=== PATIENT | female | born 1970 | race Caucasian/White ===

== ENCOUNTER 2024-08-05 10:02 | Emergency (ER) | payer MEDICARE ==
[~2024-08-05] VITALS: Ht 172.7 cm; Wt 62.0 kg
[2024-08-05] VITALS (30 sets, daily range): BP systolic 111–143; BP diastolic 69–86
[2024-08-05] MEDS ORDERED: ATORVASTATIN CA40 MG PO (10:18)
[2024-08-05] MEDS ORDERED: CYMBALTA60 MG PO (10:19)
[2024-08-05] MEDS ORDERED: INVEGA6 MG PO (10:19)
[2024-08-05] MEDS ORDERED: ATIVAN1 MG PO (10:20)
[2024-08-05] MEDS ORDERED: MS CONTIN30 MG PO (10:20)
[2024-08-05] MEDS ORDERED: KEPPRA500 M2 PO (10:20)
[2024-08-05] MEDS ORDERED: HYDROCO/APAP1 T10 PO (10:21)
[2024-08-05] MEDS ORDERED: MORPHINE SULFATE 4 MG/ML VIAL IV STA (10:31)
[2024-08-05] MEDS ORDERED: SODIUM CHLORIDE 0.9% 1,000 ML IV STA (10:31)
[2024-08-05] MEDS ORDERED: ONDANSETRON HCl 4 MG/2 ML SDV IV STA (10:31)
[2024-08-05] MEDS ORDERED: PIPERACILLIN Sodium-Tazobactam 3.375 GM in SODIUM CHLORIDE 0.9% 100 ML IV ONE (10:35)
[2024-08-05] MEDS ORDERED: LACTATED RINGER'S 1,000 ML IV ONE (10:35)
[2024-08-05 11:17] LABS: BASO% 0.3 % (0-3); HEMATOCRIT 37.8 % (37.0-47.0); HEMOGLOBIN 12.1 g/dl (12.0-16.0); IMMATURE GRANULOCYTES 0.2 % (0.0-5.0); LYMPH% 5.3 % (15-41); MEAN CELL VOLUME 91.1 fL CALC (80.0-100.0); MEAN CORPUSCULAR HGB 29.2 pG CALC (26.0-32.0); MONO% 6.4 % (2-13); NEUT# 11.74 thou/uL (2.00-7.15); NEUT% 87.8 % (42-76); RED BLOOD COUNT 4.15 mill/uL (4.20-5.60); RED CELL DISTRI WIDTH 14.5 % (11.5-15.5)
[2024-08-05 11:27] LABS: ALBUMIN 5.2 g/dL (3.2-5.0); ALKALINE PHOSPHATASE 93 u/l (38-126); ANION GAP 31 (6-22 (CALC)); BILIRUBIN, TOTAL 0.8 mg/dL (0.02-1.3); BUN 22 mg/dL (7-17); BUN/CREATININE RATIO 27 (12-20 (CALC)); CARBON DIOXIDE 13 mmol/l (22-30); CHLORIDE 103 mmol/l (95-108); CREATININE 0.8 mg/dL (0.5-1.0); ESTIMATED GFR 88 ML/MIN (>=90 (CALC)); LIPASE 58 u/l (23-300); POTASSIUM 3.9 mmol/l (3.5-5.1); SGOT/AST 32 u/l (14-36); SODIUM 142 mmol/l (137-146); TOTAL PROTEIN 8.2 g/dL (6.3-8.2)
[2024-08-05 12:04] LABS: URINE BILIRUBIN - DIPSTICK Negative (NEGATIVE); URINE BLOOD DIPSTICK Moderate (NEGATIVE); URINE GLUCOSE - DIPSTICK Negative (NEGATIVE); URINE KETONE >=160 mg/dL (NEGATIVE); URINE LEUK ESTERASE Trace (NEGATIVE); URINE NITRITE - DIPSTICK Negative (Negative); URINE PROTEIN - DIPSTICK 30 mg/dL (NEG-TRACE); URINE SPECIFIC GRAVITY >=1.030; URINE UROBILINOGEN - DIPSTICK 0.2 E.U./dL (0.2)
[2024-08-05 12:10] LABS: URINE COLOR Yellow
[2024-08-05 12:17] LABS: URINE SQUAMOUS EPITHELIAL CELL MODERATE EPI/hpf (0-FEW)
[2024-08-05 12:18] LABS: URINE BACTERIA FEW hpf; URINE RBC 0-2 RBC/hpf (0-5); URINE YEAST FEW hpf
[2024-08-05 12:19] LABS: URINE HYALINE CAST FEW lpf (NONE-RARE)
[2024-08-05] MEDS ORDERED: PROMETHAZINE HCL 25 MG/ML AMP IV ONE (15:05)
[2024-08-05] MEDS ORDERED: SODIUM CHLORIDE 0.9% 1,000 ML IV ONE (16:44)
== END 2024-08-05 17:29 | disposition short-term general hospital (02) ==
LOC: ED 10:02
PROVIDERS: Emergency Medicine
DX: R11.2 Nausea with vomiting, unspecified (principal); E87.20 Acidosis, unspecified; C50.919 Malignant neoplasm of unspecified site of unspecified female breast; C79.51 Secondary malignant neoplasm of bone; Z87.11 Personal history of peptic ulcer disease; Z86.73 Personal history of transient ischemic attack (TIA), and cerebral infarction without residual deficits; Z92.21 Personal history of antineoplastic chemotherapy; Z90.10 Acquired absence of unspecified breast and nipple; Z20.822 Contact with and (suspected) exposure to COVID-19
CPT/HCPCS: J2405; J2470; J2543; J2550; Q9967

== ENCOUNTER 2024-08-24 19:06 | Observation (INO) | payer MEDICARE ==
[~2024-08-24] VITALS: Ht 172.7 cm; Wt 62.6 kg
[2024-08-24] VITALS (20 sets, daily range): BP systolic 75–110; BP diastolic 39–80
[~2024-08-24 19:06] MED LIST: ATIVAN1 MG PO; ATORVASTATIN CA40 MG PO; CYMBALTA60 MG PO; HYDROCO/APAP1 T10 PO; INVEGA6 MG PO; KEPPRA500 M2 PO; MS CONTIN30 MG PO
[2024-08-24] MEDS ORDERED: POT CHLORIDE20 ME2 PO (19:36)
[2024-08-24] MEDS ORDERED: MIDODRINE5 MG PO ×2 (19:36→19:37)
[2024-08-24] MEDS ORDERED: CYMBALTA30 MG PO (19:38)
[2024-08-24] MEDS ORDERED: INVEGA3 MG PO (19:39)
[2024-08-24] MEDS ORDERED: TRAZODONE50 MG PO (19:39)
[2024-08-24] MEDS ORDERED: KLONOPIN1 MG PO (19:40)
[2024-08-24] MEDS ORDERED: ATORVASTATIN CA40 MG PO (19:40)
[2024-08-24] MEDS ORDERED: COLACE100 MG PO (19:41)
--- NOTE | 2024-08-24 19:45 | NUR ---
SEVERAL UNSUCCESSFUL ATTEMPTS TO ESTABLISH AN IV. GAVE REPORT TO JEFFRY FRY. SENT BLOODWORK TO LAB.
[2024-08-24] MEDS ORDERED: LORTAB 7.57.5 MG PO (19:46)
[2024-08-24] MEDS ORDERED: ROWEEPRA500 MG PO (19:48)
[2024-08-24] MEDS ORDERED: PROTONIX40 M2 PO (19:49)
[2024-08-24] MEDS ORDERED: PROMETHAZINE HY25 M1 PO (19:51)
[2024-08-24] MEDS ORDERED: SUCRALFATE1 GM PO (19:51)
[2024-08-24] MEDS ORDERED: TAMOXIFEN CITRA20 MG PO (19:54)
[2024-08-24 20:10] LABS: EOS% 1.9 % (0-8); HEMATOCRIT 32.1 % (37.0-47.0); HEMOGLOBIN 9.3 g/dl (12.0-16.0); IMMATURE GRANULOCYTES 0.7 % (0.0-5.0); MEAN CELL VOLUME 98.8 fL CALC (80.0-100.0); MEAN CORPUSCULAR HGB 28.6 pG CALC (26.0-32.0); MONO% 9.9 % (2-13); NEUT# 2.25 thou/uL (2.00-7.15); NEUT% 54.5 % (42-76); RED BLOOD COUNT 3.25 mill/uL (4.20-5.60); RED CELL DISTRI WIDTH 13.7 % (11.5-15.5)
[2024-08-24] MEDS ORDERED: HYDROcodone 7.5 MG/Acetaminophen 325 MG/COMBO PO ONE (20:15)
[2024-08-24 20:21] LABS: ALKALINE PHOSPHATASE 51 u/l (38-126); BUN 19 mg/dL (7-17); BUN/CREATININE RATIO 28 (12-20 (CALC)); CHLORIDE 100 mmol/l (95-108); CREATININE 0.7 mg/dL (0.5-1.0); ESTIMATED GFR 103 ML/MIN (>=90 (CALC)); POTASSIUM 4.5 mmol/l (3.5-5.1); SGOT/AST 23 u/l (14-36); SODIUM 136 mmol/l (137-146); TOTAL PROTEIN 6.7 g/dL (6.3-8.2)
[2024-08-24 20:25] LABS: ANION GAP 13 (6-22 (CALC)); BILIRUBIN, TOTAL 0.3 mg/dL (0.02-1.3); CARBON DIOXIDE 28 mmol/l (22-30)
[2024-08-24 20:31] LABS: ACT PARTIAL THROMBO TIME 24.6 SECONDS (20.0-32.5); D-DIMER 0.93 mg/L (0.19-0.60)
[2024-08-24 20:33] LABS: PROTHROMBIN TIME 10.6 SECONDS (9.0-12.5)
[2024-08-24] MEDS ORDERED: MIDODRINE HCL 5 MG TAB PO ONE (21:25)
[2024-08-24] MEDS ORDERED: SODIUM CHLORIDE 0.9% 1,000 ML IV PRN (22:15)
[2024-08-24] MEDS ORDERED: ACETAMINOPHEN 325 MG/TAB PO PRN (22:15)
[2024-08-24] MEDS ORDERED: MAGNESIUM HYDROXIDE 30 ML UDC PO PRN (22:15)
--- NOTE | 2024-08-24 22:18 | NUR ---
UNABLE TO OBTAIN IV ACCESS, EDP NOTIFIED.
[2024-08-24] MEDS ORDERED: SODIUM CHLORIDE 0.9% 1,000 ML IV ONE (22:30)
--- NOTE | 2024-08-24 22:49 | NUR ---
REPORT GIVEN TO ADELAIDA
[2024-08-25] VITALS (11 sets, daily range): BP systolic 82–159; BP diastolic 38–70
--- NOTE | 2024-08-25 | NUR ---
PATIENT TO MED SURG ROOM 267. CARE AHNDED OVER TO ALFREDITO
--- NOTE | 2024-08-25 00:03 | NUR ---
PT ARRIVED TO MED-SURG FLOOR AROUND 2355 HRS VIA WHEELCHAIR. REPORT RECEIVED FROM ER NURSE. PT IS ALERT AND ORIENTED X4. PT STATES SHE CAME IN DUE TO SOB, DIZZINESS, LIGHHEADEDNESS. PT REPORTS GENERALIZED PAIN 5/10-PT WAS MEDICATED WITH LORTAB 7.5 MG PO IN THE ER. RESPS ARE EVEN AND UNLABORED. LUNGS CLEAR ALL THROUGHOUT. ABDOMEN IS SOFT WITH ACTIVE BOWEL SOUNDS. STRONG PERIPHERAL PULSES. SIDERAILS PADDED. ORIENTED TO ROOM, CALL LIGHT AND SURROUNDINGS. CALL LIGHT IS IN REACH AND SAFETY PRECAUTIONS IN PLACE.
[2024-08-25 01:28] LABS: URINE BILIRUBIN - DIPSTICK Negative (NEGATIVE); URINE BLOOD DIPSTICK Moderate (NEGATIVE); URINE GLUCOSE - DIPSTICK Negative (NEGATIVE); URINE KETONE Negative (NEGATIVE); URINE LEUK ESTERASE Negative (NEGATIVE); URINE NITRITE - DIPSTICK Negative (Negative); URINE PROTEIN - DIPSTICK Negative (NEG-TRACE); URINE SPECIFIC GRAVITY 1.015; URINE UROBILINOGEN - DIPSTICK 0.2 E.U./dL (0.2)
[2024-08-25 01:30] LABS: URINE COLOR Yellow
[2024-08-25 01:38] LABS: URINE BACTERIA MODERATE hpf; URINE RBC 0-2 RBC/hpf (0-5); URINE SQUAMOUS EPITHELIAL CELL MANY EPI/hpf (0-FEW); URINE TRANSITIONAL EPI. CELLS RARE hpf
--- NOTE | 2024-08-25 04:00 | NUR ---
PT RESTING IN BED WITH THE HEAD OF THE BED ELEVATED AND EYES CLOSED. BREATHING IS EVEN AND UNLABORED. IVF NS INFUSING ORDERED. CALL LIGHT IN REACH
--- NOTE | 2024-08-25 07:00 | NUR ---
PT LAYING IN BED RESTING WITH EYES CLOSED, PT AROUSES EASILY TO VERBAL STIMULI, PT IS A&O X3, PUPILS PERRL, RESP. EVEN AND UNLABORED, LUNG SOUNDS ARE CLEAR, ABD DISTENDED AND SOFT WITH ACTIVE BOWEL SOUNDS, STRONG RADIAL AND PEDAL PULSES, 22G LAC IV WITH FLUIDS INFUSING AT PRESCRIBED RATE, SAFETY MEASURES REINFORCED, CALL PLASCENCIA WITHIN REACH
[2024-08-25] MEDS ORDERED: MORPHINE SULFATE 4 MG/ML VIAL IV PRN (07:45)
[2024-08-25] MEDS ORDERED: clonazePAM 1 MG/TAB PO PRN (09:00)
[2024-08-25] MEDS ORDERED: MIDODRINE HCL 5 MG TAB PO SCH ×2 (09:00→15:00)
[2024-08-25] MEDS ORDERED: PANTOPRAZOLE SODIUM Sesquihydr 40 MG/TAB PO SCH (09:00)
[2024-08-25] MEDS ORDERED: PNEUMOCOCCAL 20-VALENT CONJUGA 0.5 ML/DOSE INJ IM SCH (09:00)
[2024-08-25] MEDS ORDERED: HYDROcodone 7.5 MG/Acetaminophen 325 MG/COMBO PO PRN (09:36)
[2024-08-25] MEDS ORDERED: MORPHINE SULFATE ER 15 MG/TAB PO SCH (10:00)
--- NOTE | 2024-08-25 10:20 | NUR ---
PT ON HER CELL PHONE ASKING SOMEONE TO BRING HER PAIN MEDICATION IN FOR HER TO TAKE, NURSE EDUCATED PT ON THE RISK OF TAKING MEDICATION THAT IS NOT GIVEN TO HER BY THE NURSE, PT VERBALIZED UNDERSTANDING, PT GAVE NURSE MEDICATION SHE HAD IN HER BELONGINGS, MEDICATION WAS COUNTED BY 2 NURSES AND SENT TO THE PHARMACY
--- NOTE | 2024-08-25 12:00 | NUR ---
PT SITTING UP IN THE BED EATING LUNCH, VISITOR AT BEDSIDE, PT DENIES ANY NEEDS AT THIS TIME, CALL PLASCENCIA WITHIN REACH
[2024-08-25] MEDS ORDERED: LORTAB 7.57.5 MG PO (13:44)
--- NOTE | 2024-08-25 16:00 | NUR ---
PT LAYING IN THE BED RESTING WITH EYES CLOSED, AROUSES EASILY TO VERBAL STIMULI, NO S/S OF DISTRESS, CALL PLASCENCIA WITHIN REACH
--- NOTE | 2024-08-25 18:35 | NUR ---
PT ON THE CALL LIGHT REPEATEDLY REQUESTING PAIN MEDICATION, PT IS NOT GIVING THE NURSE ENOUGH TIME TO PULL THE MEDICATION BEFORE SHE IS CALLING AGAIN, PT CALLED 3 TIMES IN LESS THEN 5 MINS, NURSE SPOKE TO PT AND INSURE HER SHE WOULD GET HER MEDICATION, PT VERBALIZED UNDERSTANDING
--- NOTE | 2024-08-25 19:25 | NUR ---
PATIENT OBSERVED IN BED RESTING. BED SIDE ASSESSMENT COMPLETE. A&O X3. RESP EVEN AND UNLABORED. NO VISUAL SIGNS OF DISTRESS. LUNG SOUNDS CLEAR. PEDAL PULSES STRONG AND EQUAL. SAFTY PRECAUTIONS IN PLACE. BED AT LOWEST POSITION. CALL LIGHT WITH IN REACH.
--- NOTE | 2024-08-25 19:27 | NUR ---
PATIENT ASKED TO TALK TO [employer] CONSULTANT. TERA.RN, IN ROOM AND PATIENT STATED SHE HAS NOT GOTTEN ANY PAIN MEDICATION FOR HOURS. IN REPORT GIVEN BY ROXANN PATIENT WAS FOUND WITH MEDICATION. I ASKED PATIENT IF IT WAS OK TO CHECK HER BAG SHE SAID" I GOT IT" SHE STARED REMOVING ITEMS FROM BAG. I WAS LOOKING AT THE BAG. AND I OBSERVED A ORANGE PILL BOTTLE. I ASKED WHATS THAT, PATIENT STATED JUST MEDICATION. I STATED TO PATIENT" IM GOING TO VERIFY THIS BOTTLE YOU HAVE HERE, MEDICATION BOTTLE WAS OPEN AND SPILLED ALL IN BAG. VERIFIED WITH KAYCEE HYDROCODNE BOTTLE 7. WITH 45 COUNTED PILLS. SELAED IN BAG, AND PUT IN MEDROOM.
[2024-08-25] MEDS ORDERED: ENOXAPARIN SODIUM 40 MG/0.4 ML SYR SC SCH (21:00)
[2024-08-25] MEDS ORDERED: traZODone HCL 50 MG/TAB PO SCH (21:00)
[2024-08-25] MEDS ORDERED: ATORVASTATIN CALCIUM 40 MG/TAB PO SCH (21:00)
[2024-08-26] VITALS: BP 92/57
--- NOTE | 2024-08-26 00:15 | NUR ---
PATIENT OBSERVED TO BE RESTING ON LEFT SIDE. UNLABORED RESP. NO VISUAL SIGNS OF DISTRESS. BED AT LOWEST POSITION. CALL LIGHT WITH IN REACH.
[2024-08-26 04:00] VITALS: BP 111/58
[2024-08-26 04:07] VITALS: BP 111/58
--- NOTE | 2024-08-26 04:30 | NUR ---
PATIENT OBSERVED IN BED AWAKE. PATIENT CAN MAKE NEEDS KNOWN. PATIENT COMPLAINTS OF PAIN OF 7 WILL REFER TO EMAR. UNLABORED RESP. NO VISUAL SIGNS OF DISTRESS. BED AT LOWEST POSITON. CALL LIGHT WITH IN REACH.
[2024-08-26 06:37] VITALS: BP 100/64
--- NOTE | 2024-08-26 07:15 | NUR ---
PT SITTING UP IN BED, PT IS A&O X3, PUPILS PERRL, RESP. EVEN AND UNLABORED, LUNG SOUNDS ARE CLEAR, ABD DISTENDED AND SOFT, ACTIVE BOWEL SOUNDS, 22G LAC IV, STRONG RADIAL PULSES AND PEDAL PULSES, PT VERBALIZED SHE IS HAVING PAIN, PT REMINDED TO CALL FOR ASSISTANCE, PT VERBALIZED UNDERSTANDING, SAFETY MEASURES REINFORCED, BED ALARM ON FOR PT SAFETY, CALL PLASCENCIA WITHIN REACH
--- NOTE | 2024-08-26 08:30 | NUR ---
ATTEMPTED TO DISCHARGE PT, PT IS REFUSING TO LEAVE AND STATES "I AM UNABLE TO WALK", PT STOOD UP TO "SLOW" THE NURSE SHE WAS UNABLE TO WALK, PT STOOD UP WITH NO PROBLEM AND AMBULATED WITH AN UNSTEADY GAIT, PROVIDER MADE AWARE
--- NOTE | 2024-08-26 10:02 | NUR ---
PT HAD BEEN LAYING IN BED, NURSE WALKED OUT OF A PT'S ROOM ACROSS THE [place], PT WAS SEEN SITTING ON THE FLOOR, PT STATED "I WAS FIXING MY PILLOW AND SLID OUT OF BED", PT WAS ASSISTED BACK TO THE BED, PT DENIES ANY NEW PAIN AT THIS TIME, VERIFIED BED ALARM WAS ON, PT HAS NO SIGNS OF BRUISING OR REDNESS, PT REMINDED TO CALL FOR ASSISTANCE, PT VERBALIZED UNDERSTANDING, CALL PLASCENCIA WITHIN REACH
--- NOTE | 2024-08-26 12:00 | NUR ---
PT SITTING UP IN THE BED EATING LUNCH AND TALKING TO VISITORS, NO S/S OF DISTRESS, CALL PLASCENCIA WITHIN REACH
[2024-08-26 14:58] VITALS: BP 88/46
--- NOTE | 2024-08-26 16:00 | NUR ---
PT SITTING UP IN THE BED, NO S/S OF DISTRESS, PT DEMANDING TO SPEAK TO A PT ADVICATE NOW OR SHE WAS GOING TO CALL 911, STEAM HAMMER OPERATOR NOTIFIED, DIRECTOR SPOKE TO PT, PT TO BE DISCHARGED, TRANSPORT ETA 1 HOUR
--- NOTE | 2024-08-26 18:05 | NUR ---
PT ASSISTED WITH GETTING DRESSED, PT AMBULATED WITH A SLOW UNSTEADY GAIT USING A CANE TO THE WC WITH MINIMAL ASSISTANCE, PT REQUESTED [employer] FILING CLERK TO TRANSPORT HER TO [facility], PT REMINDED TRANSPORTATION WAS TO GET HER HOME, PT VERBALIZED UNDERSTANDING, PT LEFT UNIT IN STABLE CONDITION VIA WC WITH [employer] RIDE EMPLOYEE, 2 SEALED BAGS OF MEDICATION RETURNED TO PATIENT, MEDICATION WAS PLACED IN PT'S PURPLE DUFFLE BAG AT HER REQUEST
== END 2024-08-26 18:10 | disposition home or self-care (01) ==
LOC: ED 19:06 → ED-I 22:00 → ED 22:11 → MS2 22:12
PROVIDERS: Emergency Medicine; ADMIT Internal Medicine; ATTEND Internal Medicine
DX: C50.919 Malignant neoplasm of unspecified site of unspecified female breast (principal); C79.51 Secondary malignant neoplasm of bone; R53.1 Weakness; R42 Dizziness and giddiness; G89.3 Neoplasm related pain (acute) (chronic); F41.9 Anxiety disorder, unspecified; T42.4X1A Poisoning by benzodiazepines, accidental (unintentional), initial encounter; T40.2X1A Poisoning by other opioids, accidental (unintentional), initial encounter; R40.4 Transient alteration of awareness; R26.81 Unsteadiness on feet; Z86.73 Personal history of transient ischemic attack (TIA), and cerebral infarction without residual deficits; Z92.3 Personal history of irradiation; Z60.2 Problems related to living alone; Z92.21 Personal history of antineoplastic chemotherapy
CPT/HCPCS: G0378; J1650